=== PATIENT | female | born 1945 | race Caucasian/White ===

== ENCOUNTER 2017-05-01 09:07 | Emergency (ER) | payer MEDICARE, BC ==
[~2017-05-01] VITALS: Ht 160 cm; Wt 86.2 kg
[2017-05-01] MEDS ORDERED: ESCI20TA PO (09:25)
[2017-05-01] MEDS ORDERED: ASPI81TA31 PO (09:26)
[2017-05-01] MEDS ORDERED: LUBI8CAP PO (09:26)
[2017-05-01] MEDS ORDERED: PANT20TA2 PO (09:26)
[2017-05-01] MEDS ORDERED: ATOR20TA27 PO (09:26)
[2017-05-01] MEDS ORDERED: ALPR0.255 PO (09:26)
[2017-05-01] MEDS: MORPHINE SULFATE 4 MG/1 ML DISP.SYRIN IM ONE (09:49)
[2017-05-01] MEDS: ONDANSETRON 4 MG/2 ML VIAL IM ONE (09:50)
[2017-05-01] MEDS ORDERED: ONDANSETRON 4 MG/2 ML VIAL ONE (09:57)
[2017-05-01] MEDS ORDERED: MORPHINE SULFATE 4 MG/1 ML DISP.SYRIN ONE (09:57)
--- NOTE | 2017-05-01 11:38 | NUR ---
Patient discharged to home in stable conditon. Written and verbal after care instructions given. Patient verbalizes understanding of instructions.
== END 2017-05-01 11:39 | disposition home or self-care (01) ==
LOC: ER 09:07
DX: M25.512 Pain in left shoulder (principal); I10 Essential (primary) hypertension; Z79.82 Long term (current) use of aspirin; W01.0XXA Fall on same level from slipping, tripping and stumbling without subsequent striking against object, initial encounter; Y93.89 Activity, other specified; Y92.9 Unspecified place or not applicable; Y99.9 Unspecified external cause status; Z96.651 Presence of right artificial knee joint
CPT/HCPCS: 73030; 73200; J2270; J2405